=== PATIENT | female | born 1990 | race Caucasian/White ===

== ENCOUNTER → 2020-08-28 | Outpatient (CLI) | payer OTHER ==
[~2020-08-28] MED LIST: COLACE 100MG C100 MG PO; IBUPROFEN600 MG PO; LORTAB 5-325 M1 EACH PO; PRENATAL VITAM1 EAC6 PO
== END ==
LOC: LAB 12:40
DX: Z32.00 Encounter for pregnancy test, result unknown (principal)
CPT/HCPCS: 36415; 84702

== ENCOUNTER → 2020-08-30 | Outpatient (CLI) | payer OTHER | LOC: LAB 13:14 | DX: N91.2 Amenorrhea, unspecified (principal) | CPT/HCPCS: 36415; 84702 ==

== ENCOUNTER 2021-05-07 17:47 | Inpatient (IN) | payer OTHER ==
[2021-05-07 18:21] LABS: HEMOGLOBIN 11.9 gm/dl (12.3-15.3); RED BLOOD COUNT 4.09 M/UL (4.00-5.10); WHITE BLOOD COUNT 14.9 K/UL (4.5-11.0)
[2021-05-08 07:10] LABS: HEMOGLOBIN 9.7 gm/dl (12.3-15.3)
[2021-05-09 07:05] LABS: HEMOGLOBIN 9.2 gm/dl (12.3-15.3)
[2021-05-09] MEDS ORDERED: IBUPROFEN800 MG PO (10:51)
[2021-05-09] MEDS ORDERED: COLACE100 MG PO (10:51)
== END 2021-05-09 11:55 | disposition home or self-care (01) | DRG 805 ==
LOC: GENOP 17:47 → OB 17:58
PROVIDERS: ADMIT Obstetrics & Gynecology
PROC: 10E0XZZ Delivery of Products of Conception, External Approach (ICD-10-PCS; principal; 2021-05-08)
PROC: 0KQM0ZZ Repair Perineum Muscle, Open Approach (ICD-10-PCS; 2021-05-08)
PROC: 0UQMXZZ Repair Vulva, External Approach (ICD-10-PCS; 2021-05-08)
PROC: 10H07YZ Insertion of Other Device into Products of Conception, Via Natural or Artificial Opening (ICD-10-PCS; 2021-05-08)
DX: O34.219 Maternal care for unspecified type scar from previous cesarean delivery (principal); U07.1 COVID-19; Z37.0 Single live birth; O98.52 Other viral diseases complicating childbirth; O70.1 Second degree perineal laceration during delivery; Z79.82 Long term (current) use of aspirin; Z79.899 Other long term (current) drug therapy; Z3A.39 39 weeks gestation of pregnancy
CPT/HCPCS: 36415; 81001; 82800; 85014; 85018; 85025; 85461; 86850; 86900; 86901; 90471; 90707; J2590; J2790; J7120; U0002